=== PATIENT | male | born 1995 | race Caucasian/White ===

== ENCOUNTER 2018-01-06 23:24 | Emergency (ER) | payer SELFPAY ==
[2018-01-06] MEDS ORDERED: Ketorolac Tromethamine 30 MG/ML VIAL ONE (23:38)
--- NOTE | 2018-01-07 00:02 | CT ---
CT BRAIN WITHOUT CONTRAST: 01/06/18 HISTORY: Trauma. COMPARISON: None. FINDINGS: Chronic appearing ex vacuo dilatation of the anterior horn right lateral ventricle. No acute hemorrha ge or infarct. No midline shift or mass effect. Calvarium is intact. The paranasal sinuses and mastoi ds are clear. IMPRESSION: Chronic changes. No acute intracranial abnormality. Code YULISA Joe, 11:55 p.m. POS: [facility]
[2018-01-07] MEDS ORDERED: Bacitracin Zinc 1 Packet ONE (00:15)
== END 2018-01-07 00:25 | disposition home or self-care (01) ==
LOC: ERS 23:24
DX: S06.0X0A Concussion without loss of consciousness, initial encounter (principal); F17.220 Nicotine dependence, chewing tobacco, uncomplicated; V43.52XA Car driver injured in collision with other type car in traffic accident, initial encounter
CPT/HCPCS: 70450; 96374; G0390; J1885